=== PATIENT | male | born 1995 | race Two or more races ===

== ENCOUNTER 2024-09-22 15:47 | Emergency (ER) | payer BC ==
[~2024-09-22] VITALS: Ht 170.2 cm; Wt 79.4 kg
[2024-09-22] MEDS ORDERED: PROPOFOL 10 MG/1 ML VIAL 50ML IV ONE (17:00)
[2024-09-22] MEDS ORDERED: 0.9 % SODIUM CHLORIDE 1,000 ML IV ONE (17:00)
[2024-09-22] MEDS ORDERED: PROPOFOL 10,000 MCG/ML VIAL ONE (17:01)
[2024-09-22] MEDS ORDERED: NORFLEX100MG PO (18:00)
[2024-09-22 18:27] VITALS: BP 138/66; O2SAT 99
== END 2024-09-22 18:28 | disposition home or self-care (01) ==
LOC: ER 15:50
DX: S43.084A Other dislocation of right shoulder joint, initial encounter (principal); X58.XXXA Exposure to other specified factors, initial encounter; Y93.89 Activity, other specified; Y92.832 Beach as the place of occurrence of the external cause; Y99.8 Other external cause status